=== PATIENT | female | born 1990 | race Caucasian/White ===

== ENCOUNTER → 2021-07-12 | Outpatient (CLI) | payer OTHER | END | disposition home or self-care (01) | LOC: LAB SHORT 12:00 | DX: A49.02 Methicillin resistant Staphylococcus aureus infection, unspecified site (principal) | CPT/HCPCS: 87081 ==

== ENCOUNTER → 2021-08-09 | Outpatient (CLI) | payer OTHER | END | disposition home or self-care (01) | LOC: LAB 10:26 → LAB SHORT 10:26 | DX: A49.02 Methicillin resistant Staphylococcus aureus infection, unspecified site (principal) | CPT/HCPCS: 87081 ==

== ENCOUNTER 2021-09-14 19:51 | Inpatient (IN) | payer OTHER ==
[~2021-09-14] VITALS: Ht 165.1 cm; Wt 124.0 kg
[2021-09-14] MEDS ORDERED: PRENATAL TABLE1 EAC2 (20:23)
[2021-09-14] MEDS ORDERED: ACYC400 PO (20:30)
[2021-09-14 20:53] LABS: BASOPHILS ABSOLUTE AUTO 0.04 K/mm3 (0.00-0.23); BASOPHILS PERCENT AUTO 0 % (0-2); EOSINOPHILS PERCENT AUTO 1 % (0-6); Hematocrit 37.4 % (33.0-51.0); Hemoglobin 12.5 g/dL (11.5-16.0); IMMATURE GRAN ABSOLUTE AUTO 0.14 K/mm3 (0.00-0.10); IMMATURE GRAN PERCENT AUTO 1 % (0-1); LYMPHOCYTES ABSOLUTE AUTO 1.96 K/mm3 (0.84-5.20); LYMPHOCYTES PERCENT AUTO 16 % (21-46); MONOCYTES ABSOLUTE AUTO 0.78 K/mm3 (0.16-1.47); MONOCYTES PERCENT AUTO 6 % (4-13); Mean Corpuscular HGB Conc 33.4 g/dL (31.5-36.5); Mean Corpuscular Volume 78 fL (80-100); NEUTROPHILS ABSOLUTE AUTO 9.08 K/mm3 (1.96-9.15); NEUTROPHILS PERCENT AUTO 75 % (41-73); RDW Coefficient Variation 15.2 % (11.7-14.2); RDW Standard Deviation 42.4 fL (35.1-46.3)
[2021-09-14 21:05] LABS: Platelet Count 296 K/mm3 (150-400)
--- NOTE | 2021-09-15 17:00 | NUR ---
09/15/21 1700 OneontaFortunato restrepocigiacomo Finnegna VIABLE MALE DELIVERED VIA PRIMARY SECTION. WEIGHS 10-1. 4575 GRAMS. 22 IN LONG. 15.25 IN. HEAD. 15 IN CHEST. CORD BLOOD GIVEN TO AZUCENA ROBERSON FOR BLOOD TYPE. ORDER FROM DR. NUNN TO SEND PLACENTA TO PATHOLOGY.
[2021-09-16 05:03] LABS: BASOPHILS ABSOLUTE AUTO 0.07 K/mm3 (0.00-0.23); BASOPHILS PERCENT AUTO 1 % (0-2); EOSINOPHILS PERCENT AUTO 1 % (0-6); Hematocrit 31.8 % (33.0-51.0); Hemoglobin 10.4 g/dL (11.5-16.0); IMMATURE GRAN ABSOLUTE AUTO 0.12 K/mm3 (0.00-0.10); IMMATURE GRAN PERCENT AUTO 1 % (0-1); LYMPHOCYTES ABSOLUTE AUTO 1.75 K/mm3 (0.84-5.20); LYMPHOCYTES PERCENT AUTO 13 % (21-46); MONOCYTES ABSOLUTE AUTO 0.87 K/mm3 (0.16-1.47); MONOCYTES PERCENT AUTO 6 % (4-13); Mean Corpuscular HGB 25.7 pg (26.0-34.0); Mean Corpuscular HGB Conc 32.7 g/dL (31.5-36.5); Mean Corpuscular Volume 79 fL (80-100); Mean Platelet Volume 10.4 fL (9.1-12.4); NEUTROPHILS ABSOLUTE AUTO 10.85 K/mm3 (1.96-9.15); NEUTROPHILS PERCENT AUTO 79 % (41-73); Platelet Count 258 K/mm3 (150-400); RDW Coefficient Variation 15.7 % (11.7-14.2); RDW Standard Deviation 43.9 fL (35.1-46.3); Red Blood Cell Count 4.04 M/mm3 (3.80-5.20); White Blood Cell Count 13.76 K/mm3 (4.00-11.30)
--- NOTE | 2021-09-16 20:27 | NUR ---
MOTHER UP TO VOID AND WALK AROUND THE ROOM. SHE DID PASS FLATUS AFTER GIVEN SIMETHICONE AND WALKING AROUND ROOM.
[2021-09-17] MEDS ORDERED: IBUP800 PO (09:49)
[2021-09-17] MEDS ORDERED: Percocet 5-3251 EACH PO (09:49)
[2021-09-17] MEDS ORDERED: DOCU100 PO (09:50)
--- NOTE | 2021-09-17 12:34 | NUR ---
DC INSTRUCTIONS REVIEWED WITH PT AT LENGTH. HAS PPFU HERE AT [facility] SUNDAY AT 1300 WITH ABELINO TIPTON RN, WILL ALSO FOLLOW UP WITH DR ALONSO LOREN TO GET ATUL REMOVED. SHE IS AWARE TO CALL DR WATERS OFFICE SUNDAY TO VERIFY THAT APPT. PRESCRIPTIONS GIVEN FOR COLACE IBUPROFEN AND PERCOCET. CORE REFERRAL SENT AND THEY ARE GOING TO CALL HER TOMORROW. THEY ARE DISCHARGING HOME TO THEIR HOTEL WHERE THEY SWITCHED ROOMS TO A LOWER FLOOR SO THAT YAYA DOES NOT HAVE TO CLIMB STAIRS. SHE IS ALSO SET UP WITH [facility] AND [facility]. EXTRA FORMULA, PADS GIVEN. KNOWS WHEN TO CALL IF HAVING PROBLEMS OR WHEN TO RETURN TO EMERGENCY ROOM IF HAVING EMERGENCY. BANDS MATCHED AND GRANDMOTHER ON HER WAY TO COATING MACHINE FEEDER YAYAADELSO HER AND HER VESTA.
--- NOTE | 2021-09-21 15:42 | NUR ---
LATE ENTRY UPDATED CHARTING OR SURGICAL CHECKLIST PER EMR
== END 2021-09-17 13:00 | disposition home or self-care (01) | DRG 787 ==
LOC: OBS 19:51 → BC 19:58 → OBS 20:03 → BC 20:10
PROVIDERS: Nurse Practitioner Obstetrics & Gynecology; ADMIT Obstetrics & Gynecology
PROC: 10D00Z1 Extraction of Products of Conception, Low, Open Approach (ICD-10-PCS; principal; 2021-09-15 15:30)
PROC: 3E0234Z Introduction of Serum, Toxoid and Vaccine into Muscle, Percutaneous Approach (ICD-10-PCS; 2021-09-16)
DX: O64.0XX0 Obstructed labor due to incomplete rotation of fetal head, not applicable or unspecified (principal); O98.52 Other viral diseases complicating childbirth; O99.824 Streptococcus B carrier state complicating childbirth; O99.214 Obesity complicating childbirth; A60.09 Herpesviral infection of other urogenital tract; O26.893 Other specified pregnancy related conditions, third trimester; O36.63X0 Maternal care for excessive fetal growth, third trimester, not applicable or unspecified; Z90.89 Acquired absence of other organs; Z98.890 Other specified postprocedural states; Z88.0 Allergy status to penicillin; Z91.040 Latex allergy status; Z79.899 Other long term (current) drug therapy; Z37.0 Single live birth; Z67.41 Type O blood, Rh negative; Z3A.39 39 weeks gestation of pregnancy
CPT/HCPCS: 36415; 51702; 85025; 85460; 86850; 86900; 86901; A9270; C1765; J1580; J1885; J2001; J2210; J2370; J2405; J2590; J2704; J2765; J2791; J3010; J7120